=== PATIENT | male | born 1970 | race Caucasian/White ===

== ENCOUNTER 2020-01-16 09:06 | Emergency (ER) | payer OTHER ==
[2020-01-16 09:26] VITALS: BP 139/92
[2020-01-16] MEDS ORDERED: PROPARACAINE 0.5% OPHTH DROPS 15 ML EACHEYE STA (09:50)
--- NOTE | 2020-01-16 09:51 | ED Physician Documentation ---
PD HPI OPHTHO - Stated complaint Stated Complaint: RT EYE PX - Chief complaint Chief Complaint: Heent - History obtained from History obtained from: Patient - History of Present Illness Timing - onset: Yesterday Timing - duration: Days (1) Timing - details: Abrupt onset Location: Right (still hurting today), Both (both eyes irritated initially and improved through the evening.) Quality / character: Sharp (just in lateral right eye today; the rest has improved) Associated symptoms: Redness, FB sensation Contributing factors: FB (got some fiberglass and dust in eyes yesterday at work when looking up and the fiberglass jostled. He was wearing glasses but the debris wafted down behind the safety glasses. He did rinse eyes after it, but continues with irritation mostly right eye, with sharp feeling with EOMs at lateral right eye/eyelid.) Similar symptoms before: Has not had sx before Review of Systems Constitutional: denies: Fever, Chills Eyes: reports: Irritation. denies: Loss of vision, Discharge Nose: denies: Rhinorrhea / runny nose, Congestion Throat: denies: Sore throat Respiratory: denies: Cough PD PAST MEDICAL HISTORY - Past Medical History Cardiovascular: None Respiratory: None - Present Medications Home Medications: Ambulatory Orders Medication Instructions Recorded Confirmed Erythromycin Base [Erythromycin 1 applic OP QID #3.5 oint...g. 01/16/20 Ophthalmic Ointment] - Allergies Allergies/Adverse Reactions: Allergies Allergy/AdvReac Type Severity Reaction Status Date / Time No Known Drug Allergies Allergy Verified 01/16/20 09:24 - Living Situation Living Situation: reports: With spouse/s.o. Living Arrangement: reports: At home PD ED PE NORMAL - Vitals Vital signs reviewed: Yes - General General: Alert and oriented X 3, No acute distress, Well developed/nourished - HEENT HEENT: PERRL, EOMI, Other (left eye appears okay. Right eye with some conju nctival redness lower aspect. No discharge. No obvious FB. he feels better with proparacaine. I did sweep with cotton applicator under lid and in lateral corner in case of small FB not visible. Dye stain showed small rounded area of superficial uptake c/w FB abrasion. No FB highlighted. ) Results - Vitals Vitals: Vital Signs - 24 hr 01/16/20 09:21 Temperature 36.5 C Heart Rate 84 Respiratory 12 Rate Blood Pressure 139/92 H O2 Saturation 98 Oxygen O2 Source Room air Departure - Departure Disposition: 01 Home, Self Care Clinical Impression: Corneal abrasion Qualifiers: Encounter type: initial encounter Laterality: right Qualified Code(s): S05.01XA - Injury of conjunctiva and corneal abrasion without foreign body, right eye, initial encounter Condition: Stable Record reviewed to determine appropriate education?: Yes Instructions: ED Eye Injury Corneal Abrasion Follow-Up: Anton Pagan MD [Provider Admit Priv/Credential] - Prescriptions: Erythromycin Base [Erythromycin Ophthalmic Ointment] 1 applic OP QID #3.5 oint...g. Comments: It does look like a small abrasion on the surface of the eye. There likely was still some small fiberglass shard and hopefully we swept it out. Use the antibiotic ointment every 2-3 hours as needed for eye discomfort. It is mainly the ointment part to try to help with the symptoms. It does not look like an infection at this time. You could use saline drops alternatively for soothing to. Tylenol or ibuprofen if needed for pains. I would anticipate improvement through the day today with resting of the eye. Recheck if not improved well over the next 1 to 2 days. You could follow-up with an revenue tax specialist if it is just mildly irritated into next week. Forms: Activity restrictions Discharge Date/Time: 01/16/20 10:33
[2020-01-16] MEDS ORDERED: ERYTHROMYCIN OPHTH OINT 1 GM TUBE RIGHTEYE STA (10:22)
== END 2020-01-16 10:33 | disposition home or self-care (01) ==
LOC: ED 09:06
DX: S05.01XA Injury of conjunctiva and corneal abrasion without foreign body, right eye, initial encounter (principal); X58.XXXA Exposure to other specified factors, initial encounter
CPT/HCPCS: 99282; 99283; J3490

== ENCOUNTER 2020-02-11 15:58 | Outpatient (CLI) | payer OTHER ==
--- NOTE | 2020-02-11 16:29 | XRAY Report ---
PROCEDURE: Foot 3 View RT INDICATIONS: CHRONIC PAIN R FOOT X 2 YEARS TECHNIQUE: views of the foot were acquired. COMPARISON: FINDINGS: Bones: No fractures or dislocations. No suspicious bony lesions. There is moderate joint space arjun rowing and periarticular osteophyte formation at the first metatarsophalangeal joint. Soft tissues: No tibiotalar joint effusion. Achilles tendon appears normal. IMPRESSION: First metatarsophalangeal joint osteoarthritis. No acute fracture. No osseous lesion. If symptoms and /or clinical suspicion for pathology continue, further assessment with repeat plain films, or advance d imaging (e.g., CT, MRI, or bone scan) is recommended for further assessment. Reviewed by: Salty Livingston MD on 02/11/2020 4:28 PM PDT Approved by: Salty Livingston MD on 02/11/2020 4:28 PM PDT Station ID: [id number]
== END 2020-02-11 15:59 | disposition home or self-care (01) ==
LOC: DI 15:58
PROVIDERS: ATTEND Podiatrist
DX: M18.11 Unilateral primary osteoarthritis of first carpometacarpal joint, right hand (principal); M10.071 Idiopathic gout, right ankle and foot
CPT/HCPCS: 36415; 84550

== ENCOUNTER 2020-03-19 15:40 | Outpatient (CLI) | payer OTHER ==
[2020-03-19 16:25] VITALS: BP 142/88
--- NOTE | 2020-03-19 16:25 | SLEEP CARE CONSULTATION ---
Information from patient questionnaire entered by Luci Hale. I have reviewed and concur with the information entered by Luci Hale. This document represents the service I personally performed and the decisions made by me, Kori Smith ARNP. History of Present Illness Service Date and Time: 03/19/2020 1540 Reason for Visit: New patient Accompanied by: Spouse Chief Complaint: reports: Unrefreshed sleep, Snoring, Excessive daytime sleepiness (rundown, uses 5 hour energy to help), Observed pauses in breathing, Fatigue, Frequent awakenings at night (wake up and goes back to sleep). denies: Insomnia Duration of Symptoms: 10 years plus Usual bedtime: 7-8 pm Time it takes to fall asleep: 10 min Snores at night: Yes Observed to quit breathing while asleep: Yes Sleeps alone due to snoring: Yes Number of times waking at night: 2-3 Reasons for waking at night: reports: Choking, Snoring, Gasping for air. denies: Bathroom Toss, Turn, or Twitch while sleeping: Yes Recalls having dreams: Yes Usually gets out of bed at: 4:30 am Feels refreshed in the morning: No Morning headache: No Sleepy or fatigued during the day: Yes Ever fallen asleep while driving: No Takes day naps: No Dreams during day naps: No Prior sleep studies: No Additional HPI information: Patient states he has a loud snore and has for many years. He also has a history of hypertension. His states she will leave the room to sleep in another room due to his loud snoring and she has also seen him stop breathing in his sleep. He states his brother has ASAEL and is on CPAP therapy. He states he has never had a problem with falling asleep while driving but is often sleepy during the day. He drinks 2 5 hour energy drinks daily to wake him up and keep him going. - Parasomnia Symptoms Ever been unable to move upon waking from sleep: No Walks in sleep: No Talks in sleep: No Ever acted out dreams in sleep: Yes (rarely) Ever felt weak in the knees when startled or emotional: No Bothered by creepy, crawly, restless sensations in legs: No Problems with memory or concentration: No Subjective Initial [place] Sleepiness Scale score: 3 (in 2019) Past Medical History Past Medical History: reports: Hypertension, Arthritis, Gout (right great toe). 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 Patient is and lives in [place]. Have you smoked in the past 12 months: No Alcohol use: No Caffeine use: Yes Caffeine amount and frequency: 2 5 hr energy shots daily Family History Family history of sleep disordered breathing: Yes (brother) Family Hx Sleep Apnea: Sibling: Snoring, Sleep apnea - Treated Allergies and Home Medications Drug allergies reviewed: Yes (NKDA) Home medication list reviewed: Yes Allergy and home medication list: LInsinopril-HCTZ 20/12.5 mg once a day melatonin 10 MG, prn acetaminophen prn Review of Systems Cardiovascular: reports: high blood pressure. denies: palpitations, chest pain, irregular heart rate or pulse, leg or foot swelling, have to sleep sitting up Respiratory: denies: shortness of breath, wheeze, chronic cough Gastrointestinal: reports: heartburn (occasional depending on foods). denies: difficulty swallowing Urinary: denies: impotence Neurological: denies: headaches, seizure, head trauma, gait or balance problems Psychiatric: denies: anxiety, depression, mood disorder, claustrophobia Ear/Nose/Throat: reports: nasal congestion (allergies intermittently), dry mouth/throat (every night, keeps water at bedside to wet mouth), wisdom teeth removed. denies: sinus problems, nose bleeds, hoarseness, injury to nose, tonsillectomy Endocrine: denies: thyroid disease, history of goiter, too hot or cold, excessive thirst, increased appetite Musculoskeletal: reports: joint pain Immunologic: reports: allergies to food or environment (seasonal) Physical Exam Blood Pressure: 142/88 Cuff size: long Heart Rate: 78 O2 Saturation: 97 Height: 6 ft Weight: 222 lb 6.4 oz Body Mass Index: 30.2 BMI Classification: Obese Neck circumference: 16 (inches) HEENT: No craniofacial malformation Nostrils: patent to airflow Turbinates: normal Septum: midline Mouth and throat: normal Soft palate: normal Hard palate: normal Uvula: normal Uvula visualization: 100% Mallampati Class I Tongue: normal in size Tonsils: small Chin and jaw: normal size and position Neck: normal w/o lymphadenopathy or thyromegaly Heart: regular rate and rhythm Lungs: clear bilaterally Impression and Plan 1. Suspected Obstructive Sleep Apnea-Hypopnea Syndrome, as suggested by a history of loud and irregular snoring, observed cessation of breath while asleep, gasping or choking in sleep, frequent awakening during the night, unrefreshed sleep, and excessive daytime sleepiness. Narrow oropharynx and obesity are common predisposing factors for obstructive sleep apnea-hypopnea syndrome. I recommend proceeding to polysomnography to confirm the diagnosis and to assess severity. I informed the patient of what the sleep studies involve and after some discussion, obtained agreement to proceed. The pathophysiology of obstructive sleep apnea-hypopnea syndrome was discussed with the patient and health risks of cardiovascular and cerebrovascular disease if not treated. AAS brochure for obstructive sleep apnea-hypopnea syndrome given and reviewed. Risks of drowsy driving discussed in detail and patient advised to avoid long distance driving and to covering machine operator helper at the first sign of drowsiness. Patient agreed to plan. * Schedule polysomnography. * Avoid long distance driving or driving when feeling sleepy. * Attempt to lose weight. * Review instructions provided by trained office staff on how to prepare for the sleep study. * Return for follow-up after sleep study completed. Visit Type: In Office Time Spent with Patient (minutes): 25 Provider Statement: I spent 100% of the Face to Face Visit with the patient with greater than 50% spent counseling the patient and coordination of care.
== END 2020-03-19 15:41 | disposition home or self-care (01) ==
LOC: SC 15:40
PROVIDERS: ATTEND Nurse Practitioner Family
DX: G47.10 Hypersomnia, unspecified (principal); G47.9 Sleep disorder, unspecified; R06.89 Other abnormalities of breathing; R06.83 Snoring; E66.9 Obesity, unspecified; Z68.30 Body mass index [BMI] 30.0-30.9, adult; I10 Essential (primary) hypertension
CPT/HCPCS: 99204; 99212

== ENCOUNTER 2020-04-09 19:31 | Outpatient (CLI) | payer OTHER | END 2020-04-09 19:32 | disposition home or self-care (01) | LOC: SC 19:31 | PROVIDERS: ATTEND Internal Medicine Pulmonary Disease | DX: G47.33 Obstructive sleep apnea (adult) (pediatric) (principal); G47.61 Periodic limb movement disorder; E66.9 Obesity, unspecified; Z68.30 Body mass index [BMI] 30.0-30.9, adult | CPT/HCPCS: 95810 ==

== ENCOUNTER 2020-04-20 16:04 | Outpatient (CLI) | payer OTHER ==
--- NOTE | 2020-04-20 16:35 | SLEEP CARE CONSULTATION ---
Information from patient questionnaire entered by Alida Amezquita. I have reviewed and concur with the information entered by Alida Amezquita. This document represents the service I personally performed and the decisions made by me, Kori Smith ARNP. History of Present Illness Service Date and Time: 04/20/2020 1604 Initial [place] Sleepiness Scale score: 3 (in 2020) Current [place] Sleepiness Scale score: 3 Additional HPI information: KAMERON EASLEY returns with spouse for follow up and results of the recently performed polysomnography. Patient was found to have mild obstructive sleep apnea with a AHI of 5.4 with sadia oxygen saturation of 86% and severe periodic limb movements during the study. I explained the pathophysiology behind obstructive sleep apnea. We then spent quite a bit of time discussing different treatment options. For mild obstructive sleep apnea, surgery and oral appliance are alternatives to nasal CPAP therapy but in moderate or severe cases, nasal CPAP is the most effective and reliable treatment. Because apnea is primarily in supine position, then positional management therapy could be effective. Methods discussed such as positioning with pillows, using a T-shirt with tennis balls in the back, and shown commercial products that have a pillow format on back to prevent supine sleep. I reviewed the impact of weight changes on sleep apnea and strongly recommended losing weight. After some discussion, the patient opted to go with the nasal CPAP therapy. Nasal autoCPAP set at [id number] will be ordered with rationale explained. A manual titration study will be ordered if unable to find optimal pressure with office adjustments. I explained how CPAP machine works with sample devices Respironics Dreamstation and [employer]ancing[employer] [id number] and what to expect when using the machine. Using CPAP every night in order to get used to it was emphasized. Patient advised to put CPAP mask on before getting into bed so as not to fall asleep without CPAP. To assist acclimation to CPAP use, it could also be used for a short time during day while reading or watching TV. The patient was instructed to call the CPAP supplier to discuss any mechanical problem that may occur. If the mask given is uncomfortable or is difficult to keep on through the night even with adjustment, contact the CPAP supplier as many will replace with another mask style if notified before 30 days. If snoring or perceives is not getting enough air or too much air from the machine, notify this office. AASM patient education PAP tips reviewed and given to patient. Patient counseled not drink alcohol less than 4 hours before bedtime as it can increase snoring and apnea. Patient was cautioned about risks of drowsy driving until sleepiness symptoms resolve. Sleep Study - Results Type of Sleep Study: Polysomnography Prior sleep studies: No Polysomnography/Home Sleep Study results: IMPRESSION: The quality of the study is good. The patient had normal sleep efficiency. The sleep architecture was abnormal for sleep fragmentation and reduced amount of time spent in slow wave sleep (N3). Respiratory monitoring showed mild obstructive sleep apnea-hypopnea (AHI = 5.4) associated with frequent arousals, oxyhemoglobin desaturation and mild hypoxia (sadia oxygen saturation of 86%). The respiratory events occurred almost exclusively during supine REM sleep (supine AHI = 6.7; non-supine = 0.00). Snore was light to loud in intensity. There was severe periodic leg movement of sleep contributing to the sleep fragmentation. Cardiac rhythm was normal sinus rhythm without significant arrhythmia. No abnormal behavior (parasomnia) observed. Allergies and Home Medications Drug allergies reviewed: Yes (none) Home medication list reviewed: Yes (no changes) Review of Systems Review of systems same as previous: Yes (no changes) Physical Exam Heart Rate: 98 O2 Saturation: 96 Height: 6 ft Weight: 224 lb 3.2 oz Body Mass Index: 30.4 BMI Classification: Obese Impression and Plan 1. Obstructive Sleep Apnea-Hypopnea Syndrome, mild, with lowest oxygen saturation of 86%. Obviously this is the cause of the patients symptoms of unrefreshed sleep, and excessive daytime sleepiness. Positive pressure therapy could benefit his hypertension. As mentioned above, the patient will be started on nasal autoCPAP therapy with pressure set at 4-15 cmH2O. A manual titration study will be completed if unable to find optimal treatment pressure with office adjustments. Compliance guidelines also reviewed. A copy of compliance guidelines will be given for reference at check out. Because the apnea is more severe supine, I instructed to avoid sleeping supine using pillow positioning until able to start CPAP use. 2. Periodic limb movement, severe, that did fragment patients sleep. Periodic limb movement of sleep (PLMS) is characterized by episodes of repetitive limb movements that occur during sleep and usually involve the lower limbs. The etiology is unknown but can be associated with restless leg syndrome (RLS), neuropathy, spinal cord diseases, kidney disease, rheumatological disorders, narcolepsy, obstructive sleep apnea, and REM sleep behavior disorder. Other factors that can increase PLMS and/or RLS are heredity and iron deficiency as reflected by a low serum ferritin level below 50 to 75mcg / L. Several medications can precipitate or aggravate PLMS such as selective serotonin re- uptake inhibitor antidepressants, tricyclic antidepressants, lithium, and dopamine receptor antagonists with the exception of bupropion. Caffeine can also aggravate PLMS and should be avoided. Sleep hygiene methods can also improve sleep as well as lifestyle changes such as regular exercise. Patient was advised that further evaluation is indicated and he should follow up with his PCP. * Nasal auto CPAP therapy, pressure at 4-15 cm H2O. * Follow up with PCP for severe periodic limb movement noted on sleep study * Attempt to lose weight. * Avoid alcohol consumption near bedtime. * Avoid supine sleep until using CPAP. * The patient is again cautioned about driving until sleepiness completely resolves. * Return one month after CPAP obtained. I will assess response to therapy and compliance at that time. Visit Type: In Office Time Spent with Patient (minutes): 21 Provider Statement: I spent 100% of the Face to Face Visit with the patient with greater than 50% spent counseling the patient and coordination of care.
== END 2020-04-20 16:05 | disposition home or self-care (01) ==
LOC: SC 16:04
PROVIDERS: ATTEND Nurse Practitioner Family
DX: G47.33 Obstructive sleep apnea (adult) (pediatric) (principal); G47.61 Periodic limb movement disorder; E66.9 Obesity, unspecified; Z68.30 Body mass index [BMI] 30.0-30.9, adult
CPT/HCPCS: 99212; 99213

== ENCOUNTER 2020-05-26 12:30 | Outpatient (CLI) | payer OTHER | END 2020-05-26 12:31 | disposition home or self-care (01) | LOC: COV 12:30 | PROVIDERS: ATTEND Family Medicine | DX: R05 Cough (principal); M79.10 Myalgia, unspecified site; R53.83 Other fatigue; R68.83 Chills (without fever); J02.9 Acute pharyngitis, unspecified; R09.81 Nasal congestion; R11.0 Nausea; Z20.828 Contact with and (suspected) exposure to other viral communicable diseases ==

== ENCOUNTER 2020-06-28 16:02 | Outpatient (CLI) | payer SELFPAY ==
--- NOTE | 2020-06-28 16:33 | SLEEP CARE CONSULTATION ---
Information from patient questionnaire entered by Alida Amezquita. I have reviewed and concur with the information entered by Alida Amezquita. This document represents the service I personally performed and the decisions made by , Kori Smith ARNP. History of Present Illness Service Date and Time: 06/28/2020 1602 Previous diagnosis: Mild, Obstructive Sleep Apnea-Hypopnea Syndrome AHI: 5.4 Reason for follow up: first compliance (04/23 setup) Equipment type: CPAP Equipment obtained from: [facility] [employer] (getting supplies as needed) Mask style: Nasal Backup mask available: Yes (other mask) Last cushion change: 6 weeks ago Prior sleep studies: Yes Year and Where: 2019 [facility] Type of Sleep Study: Polysomnography HPI additional information: KAMERON EASLEY was diagnosed to have mild, AHI 5.4, obstructive sleep apnea- hypopnea syndrome and returned today for CPAP therapy first compliance follow- up. Sleep Study - Results Prior sleep studies: No CPAP Compliance Data - Data Reviewed with Patient Average duration of nightly device use: 5 h 57 min Compliance rate %: 96.7 Current pressure setting (cmH2O): 4-15 Humidity settin Heated hose settin Average residual AHI: 2.5 Average large leak: 0 sec Subjective Patient concerns: reports: nasal congestion (occasional), dry mouth, nose, throat (dry mouth; just once in a while). denies: aerophagia, mask discomfort, air blowing in eyes, mask leak noise, condensation in mask/hose, epistaxis, other Observed to snore while using device: No Current pressure setting perceived as: comfortable On therapy, patient: reports: sleeping better, awakening more refreshed, being more awake and alert during the day, more rested overall. denies: drowsiness while driving Initial [place] Sleepiness Scale score: 3 (in 2019) Current [place] Sleepiness Scale score: 0 Allergies and Home Medications Drug allergies reviewed: Yes (no changes) Review of Systems Review of systems same as previous: Yes (no changes) Physical Exam Heart Rate: 97 O2 Saturation: 97 Height: 6 ft Weight: 230 lb Body Mass Index: 31.1 BMI Classification: Obese Impression and Plan 1. Obstructive Sleep Apnea-Hypopnea Syndrome, mild, with good treatment compliance and good apnea control. On CPAP therapy, the patient has better sleep quality and is more rested overall. He has some problems with nasal congestion due to allergies at beginning of night. He will sometimes reduce time in the mask due to this congestion. Nasal congestion can be reduced with increasing the CPAP humidity as shown on sample device. The heated hose can be adjusted higher if condensation with higher humidity setting. Saline nasal spray sample was also given to use prior to CPAP to clear nasal secretions and wash off any nasal allergens to facilitate nasal breathing. He has also had some occasional oral dryness that improved with increasing humidity setting. Patient's apnea severity and rationale for treatment to reduce apnea, improve sleep quality and reduce cardiovascular and cerebrovascular events was reviewed. I also reviewed the benefit of consistent device use of CPAP for hypertension. * Change autoCPAP pressure to 5-11 cmH2O * Notify me if snoring with mask or feeling that the pressure is too much or too little * Attempt to lose weight * Call this office if any problems using CPAP * Return for follow up in 3 months, or sooner if concerns arise Counseling Topics: Spare mask, Weight loss health impact Visit Type: In Office Other Participants: Spouse/Significant Other Time Spent with Patient (minutes): 20 Provider Statement: I spent 100% of the Face to Face Visit with the patient with greater than 50% spent counseling the patient and coordination of care.
== END 2020-06-28 16:03 | disposition home or self-care (01) ==
LOC: SC 16:02
PROVIDERS: ATTEND Nurse Practitioner Family
DX: G47.33 Obstructive sleep apnea (adult) (pediatric) (principal); E66.9 Obesity, unspecified; Z68.31 Body mass index [BMI] 31.0-31.9, adult
CPT/HCPCS: 99212

== ENCOUNTER 2021-05-12 15:26 | Outpatient (CLI) | payer OTHER ==
--- NOTE | 2021-05-12 16:23 | SLEEP CARE CONSULTATION ---
Information from patient questionnaire entered by Luci Hale. I have reviewed and concur with the information entered by Luci Hale. This document represents the service I personally performed and the decisions made by , Kori Smith ARNP. History of Present Illness Service Date and Time: 05/12/2021 1526 Previous diagnosis: Mild, Obstructive Sleep Apnea-Hypopnea Syndrome AHI: 5.4 (in 2019) Reason for follow up: other (10 month - CPAP recall) Equipment type: CPAP Equipment obtained from: [facility] (getting supplies as needed) Mask style: Nasal Mask brand: Respironics Backup mask available: Yes (old mask) Prior sleep studies: Yes Year and Where: 2019 - [facility] Type of Sleep Study: Polysomnography HPI additional information: KAMERON EASLEY was diagnosed to have mild, AHI 5.4, obstructive sleep apnea- hypopnea syndrome and returned today for CPAP therapy 10 month follow-up. CPAP Compliance Data - Data Reviewed with Patient Average duration of nightly device use: 6 hr 34 min Compliance rate %: 45.6 (180 days)(100 last 30 days) Current pressure setting (cmH2O): 5-11 Humidity settin Heated hose settin Average residual AHI: 2.5 Average large leak: 3 sec Subjective Patient concerns: reports: dry mouth, nose, throat (little bit). denies: aerophagia, mask discomfort, air blowing in eyes, mask leak noise, condensation in mask/hose, nasal congestion, epistaxis, other Observed to snore while using device: No Current pressure setting perceived as: comfortable On therapy, patient: reports: sleeping better, awakening more refreshed, being more awake and alert during the day, more rested overall. denies: drowsiness while driving Initial [place] Sleepiness Scale score: 3 (in 2019) Current [place] Sleepiness Scale score: 0 Allergies and Home Medications Home medication list reviewed: Yes (no changes) Allergy and home medication list: Lisinipril Potassium Review of Systems Review of systems same as previous: No (finger numbness on steroids) Physical Exam Heart Rate: 100 O2 Saturation: 97 Height: 6 ft Weight: 231 lb Body Mass Index: 31.3 BMI Classification: Obese Impression and Plan 1. Obstructive Sleep Apnea-Hypopnea Syndrome, mild, with poor treatment compliance and good apnea control. On CPAP therapy, the patient has better sleep quality and is more rested overall. Patient purchased his last CPAP machine. He has insurance that will pay for a replacement device for his recalled machine. Patient has already registered their device for the recall. Patient denies any black particles seen in machine or hoses, any unusual odors coming from device. Patient has not experienced any physical symptoms such as upper airway irritation, headache, skin or eye irritation, asthma, nausea/vomiting, difficulty breathing or chest pain. Patient informed that they may use an inline CPAP filter that they can obtain online to reduce chance of any particles being inhaled or ingested. We discussed thoroughly the health risks of not using the CPAP versus continuing use with the filter in place. If patient is not able to sleep due to waking up choking, gasping for air or other respiratory distress that they may decide to continue using it until it is either replaced or repaired. Patient voiced understanding and agreement with plan. Patient was encouraged to try to lose weight. Patient's apnea severity and rationale for treatment to reduce apnea, improve sleep quality and reduce cardiovascular and cerebrovascular events was reviewed. I also reviewed the benefit of consistent device use of CPAP for hypertension. * Continue auto CPAP pressure at 5-11 cmH2O * Replacement device for the recalled device * Notify me if snoring with mask or feeling that the pressure is too much or too little * Attempt to lose weight * Call this office if any problems using CPAP * Return for follow up one month after obtaining new device, or sooner if concerns arise Counseling Topics: Spare mask, Weight loss health impact Visit Type: In Office Time Spent with Patient (minutes): 20 Provider Statement: I spent 100% of the Face to Face Visit with the patient with greater than 50% spent counseling the patient and coordination of care.
== END 2021-05-12 15:27 | disposition home or self-care (01) ==
LOC: SC 15:26
PROVIDERS: ATTEND Nurse Practitioner Family
DX: G47.33 Obstructive sleep apnea (adult) (pediatric) (principal); E66.9 Obesity, unspecified; Z68.31 Body mass index [BMI] 31.0-31.9, adult
CPT/HCPCS: 99212; 99213

== ENCOUNTER 2021-07-06 10:39 | Outpatient (CLI) | payer OTHER ==
--- NOTE | 2021-07-06 11:19 | XRAY Report ---
PROCEDURE: Lumbar Spine 2 View INDICATIONS: LUMBAR STRAIN/ACUTE BACK PAIN TECHNIQUE: 2 views of the lumbar spine were acquired. COMPARISON: None. FINDINGS: BONES: 5 [id number] vertebrae are present. There is normal bony alignment. No vertebral body compression fractures. Facet arthrosis, most prominent at L5-S1. No suspicious bony lesions. The sacroiliac joints are maintained. SOFT TISSUES: Overlying bowel gas pattern is normal. No suspicious soft tissue calcifications. IMPRESSION: 1. No acute osseous abnormality. Reviewed by: Milo Santoro MD on 07/06/2021 11:18 AM [facility] Approved by: Milo Santoro MD on 07/06/2021 11:18 AM [facility] Station ID: [id number]
== END 2021-07-06 10:40 | disposition home or self-care (01) ==
LOC: DI 10:39
PROVIDERS: ATTEND Family Medicine
DX: S39.012A Strain of muscle, fascia and tendon of lower back, initial encounter (principal); M54.59 Other low back pain

== ENCOUNTER 2022-02-15 08:00 | Outpatient (CLI) | payer OTHER ==
--- NOTE | 2022-02-15 17:05 | XRAY Report ---
PROCEDURE: Shoulder 3 View LT INDICATIONS: PAIN IN LEFT SHOULDER TECHNIQUE: 3 views of the shoulder were acquired. COMPARISON: None. FINDINGS: Bones: No fractures or dislocations. Mild to moderate degenerative change at the AC joint. No suspi cious bony lesions. Visualized ribs appear intact. Soft tissues: No suspicious soft tissue calcifications. IMPRESSION: No acute osseous abnormality. 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 Reviewed by: Jose J Campos MD on 02/15/2022 5:04 PM PDT Approved by: Jose J Campos MD on 02/15/2022 5:04 PM PDT Station ID: [id number]
== END 2022-02-15 23:59 | disposition home or self-care (01) ==
LOC: DI.S 08:00
PROVIDERS: ATTEND Registered Nurse
DX: M19.012 Primary osteoarthritis, left shoulder (principal)

== ENCOUNTER 2022-02-26 03:06 | Emergency (ER) | payer OTHER ==
--- OUTSIDE RECORDS SUMMARY | 2022-02-26 03:15 | EXTERNAL MEDICAL SUMMARY RPT | Continuity of Care Document ---
:1970 Author Organization [facility] Address [address] [place] [address] Phone Allergies No information. Encounters No information. Functional Status No information. Immunizations No information. Medications date description facility +0000 diclofenac sodium [facility] [place] [id number] lisinopril-hydrochlorothiazide [facility] [place] [id number] lisinopril-hydrochlorothiazide [facility] [place] [id number]+0000 diclofenac sodium [facility] a[place]n Problems No information. Procedures date description facility +0000 Visit Code Hold [facility] [place] [id number] XR SHOULDER 2-3 VIEW [facility] [place] Results/Labs No information. Social History No information. Vital Signs date measurement value units +0000 BMI BMI 31.71 kg/m2 [id number]+0000 BP_diastolic BP_diastolic 94 mm[H g] [id number]+0000 BP_systolic BP_systolic 133 mm[Hg] 30298522390656+0000 heart_rate heart_rate 87 /min [id number]+0000 height_metric height_metric 182.88 cm [id number]+0000 height_standard height_standard 72 in [id number]+0000 respiration_rate respiration_rate 15 /min [id number]+0000 temperature_metric temperature_metric 36.44 C [id number]+0000 temperature_standard temperature_standard 9 7.6 F [id number]+0000 weight_metric weight_metric 105.69 kg [id number]+0000 weight_standard weight_standard 233 lb
[2022-02-26 03:34] VITALS: BP 136/98
[2022-02-26] MEDS ORDERED: PENICILLIN VK 250 MG TABLET PO STA (03:42)
--- NOTE | 2022-02-26 03:46 | ED Physician Documentation ---
PD HPI HEENT - Stated complaint Stated Complaint: BOTTOM RIGHT TOOTH PX - Chief complaint Chief Complaint: Heent - Additional information Additional information: Patient is a 51-year-old male presenting for evaluation of dental pain that has been present since Sunday. He reports he felt a mild ache in the tooth for a week but it worsened on Sunday and feels sharp at times. He called his dentist but they were out of the office for 2 weeks. He was unable to sleep tonight and has presented to the emergency department. He has been using Tylenol and ibuprofen And Orajel with some improvement. He is worried about an infection. He denies fever, difficulty breathing, chest pain, abdominal pain.He has been able to tolerate p.o. intake. Review of Systems Constitutional: denies: Fever Nose: denies: Congestion Throat: reports: Dental pain / toothache. denies: Sore throat Cardiac: denies: Chest pain / pressure, Palpitations Respiratory: denies: Dyspnea, Cough GI: denies: Abdominal Pain Skin: denies: Rash Neurologic: denies: Headache PD PAST MEDICAL HISTORY - Past Medical History Cardiovascular: None Respiratory: None - Present Medications Home Medications: Ambulatory Orders Medication Instructions Recorded Confirmed Erythromycin Base [Erythromycin 1 applic OP QID #3.5 oint...g. 01/16/20 Ophthalmic Ointment] Lisinopril/Hydrochlorothiazide 25 mg PO DAILY 02/26/22 02/26/22 [Zestoretic 20-25 mg Tablet] Penicillin V Potassium 500 mg PO Q6HR #40 tablet 02/26/22 - Allergies Allergies/Adverse Reactions: Allergies Allergy/AdvReac Type Severity Reaction Status Date / Time No Known Drug Allergies Allergy Verified 01/16/20 09:24 - Social History Does the pt smoke?: No Smoking Status: Never smoker PD ED PE NORMAL - General General: Alert and oriented X 3, No acute distress, Well developed/nourished - HEENT HEENT: Atraumatic, Moist mucous membranes - Neck Neck: Supple, no meningeal sign - Respiratory Respiratory: No respiratory distress - Derm Derm: Warm and dry - Extremities Extremities: No edema - Neuro Neuro: Normal speech - Psych Psych: Normal mood PD ED PE EXPANDED - HEENT HEENT: Dental TTP. No: Dental abscess HEENT Visual: 1 - tenderness Results - Vitals Vitals: Vital Signs - 24 hr 02/26/22 03:28 Temperature 37.1 C Heart Rate 91 Respiratory 16 Rate Blood Pressure 136/98 H O2 Saturation 98 Oxygen O2 Source Room air PD MEDICAL DECISION MAKING - ED course ED course: Patient with worsening dental pain. No abscess seen on exam. No oral swelling. No signs of airway compromise. Patient has tenderness to right lower tooth. Will start on antibiotics. Declines need for stronger pain medication. He does have a dentist and is aware of need for close follow-up as well as return precautions. Departure - Departure Disposition: 01 Home, Self Care Clinical Impression: Dental infection Condition: Stable Instructions: ED Tooth Pain Prescriptions: Penicillin V Potassium 500 mg PO Q6HR #40 tablet Comments: You have been evaluated for worsening pain to one of your teeth. This is likely related to an infection setting in. I have started you on an antibiotic called penicillin. You have received the first dose in the emergency room and I have sent the prescription to [facility] in [place]. Please make sure to complete this course of antibiotics and have close follow-up with your dentist. If any worsening symptoms please return to the emergency department. It is very important that you follow-up with a dentist. When it comes to dental problems like yours, the emergency department can only offer a short-term solution to your long-term problem. A couple of low cost options for dental care include: [facility] in [place], calls [phone] for an appointment Or [facility] in [place], call [phone] for an appointment. Discharge Date/Time: 02/26/22 03:51
== END 2022-02-26 03:51 | disposition home or self-care (01) ==
LOC: ED 03:06
DX: K04.7 Periapical abscess without sinus (principal)
CPT/HCPCS: 99282; 99284; A9270